=== PATIENT | female | born 1990 | race Caucasian/White ===

== ENCOUNTER 2022-01-05 13:53 | Outpatient (CLI) | payer BC, SELFPAY ==
[2022-01-05 18:05] LABS: TSH With Reflex to FT4* 0.735 uIU/mL (0.270-4.200)
== END 2022-01-05 13:54 | disposition home or self-care (01) ==
PROVIDERS: Visit Provider Advanced Practice Midwife
DX: Z39.2 Encounter for routine postpartum follow-up (principal); E03.9 Hypothyroidism, unspecified; Z12.4 Encounter for screening for malignant neoplasm of cervix
CPT/HCPCS: 84443; 88174

== ENCOUNTER 2023-02-01 10:48 | Outpatient (CLI) | payer BC, SELFPAY | END 2023-02-01 10:49 | disposition home or self-care (01) | PROVIDERS: Visit Provider Advanced Practice Midwife | DX: Z01.419 Encounter for gynecological examination (general) (routine) without abnormal findings (principal); E03.9 Hypothyroidism, unspecified; Z13.29 Encounter for screening for other suspected endocrine disorder | CPT/HCPCS: 84443; 84702 ==

== ENCOUNTER 2023-02-05 13:25 | Outpatient (CLI) | payer BC, SELFPAY | END 2023-02-05 13:26 | disposition home or self-care (01) | LOC: NFLDREF 02-06 20:12 | PROVIDERS: Visit Provider Advanced Practice Midwife | DX: Z32.00 Encounter for pregnancy test, result unknown (principal) | CPT/HCPCS: 84702 ==

== ENCOUNTER 2023-02-13 21:15 | Emergency (ER) | payer BC, SELFPAY ==
[2023-02-13 21:18] VITALS: BP 133/84; PULSE 78; RESP 14; O2SAT 97; BMI 24.7
[2023-02-13 21:38] LABS: Appearance Urine Clear (Clear); Bilirubin Urine Negative (Negative); Blood Urine Negative (Negative); Color Urine Yellow (Yellow); Glucose Urine Negative (Negative); Ketones Urine Negative (Negative); Leukocyte Esterase Urine Negative (Negative); Nitrite Urine Negative (Negative); Protein Urine Negative (Negative); Specific Gravity Urine 1.015 (1.000-1.030); Urobilinogen Urine 0.2 (0.2-1.0)
[2023-02-13 22:16] LABS: RBC Urine 0-2 (0-2); WBC Urine 0-2 (0-5)
[2023-02-13 23:25] LABS: Basophils Absolute Auto 0.02 K/uL (0.00-0.30); Basophils Percent Auto 0.3 % (0.0-3.0); Eosinophils Absolute Auto 0.06 K/uL (0.00-0.50); Eosinophils Percent Auto 0.9 % (0.0-7.0); Hematocrit 41.3 % (33.0-51.0); Hemoglobin* 13.8 gm/dL (12.0-16.0); Immature Granulocytes Abs Auto 0.04 K/uL (0.00-0.30); Immature Granulocytes Pct Auto 0.6 %; Lymphocytes Absolute Auto 2.85 K/uL (0.90-2.90); Lymphocytes Percent Auto 40.9 % (20-44); Mean Corpuscular HGB Conc 33 gm/dL (32-36); Mean Corpuscular Hemoglobin 30 pg (26-34); Mean Corpuscular Volume 91 fL (80-100); Monocytes Percent Auto 6.7 % (0.0-11.0); Neutrophils Absolute Auto 3.53 K/uL (1.7-7.0); Neutrophils Percent Auto 50.6 % (42.0-72.0); Platelet Count* 220 K/uL (140-440); RDW Coefficient of Variation % 12.9 % (11.5-15.5); Red Blood Count 4.56 m/uL (4.00-5.20); White Blood Count* 6.97 K/uL (4.50-11.00)
[2023-02-13 23:26] LABS: Slide Review Reflex No
--- NOTE | 2023-02-13 23:39 | US_ITS ---
Final Report Patient: AUREA CLARKE Facility:?[facility] Patient ID:?[id number] Site Patient ID:?[id number]. Site :?1990 Study:?US OB Pelvis-02/14/2023 12:33:58 AM Ordering Physician:DALY WORKMAN Final Report: HISTORY: Left lower quadrant pain, 1st trimester . COMPARISON: None available of this gestation. TECHNIQUE: Transvaginal ultrasound examination of the early was performed. FINDINGS: A single intrauterine gestational sac is seen with a good double decidual sac sign. A pole cannot be identified. There is a normal-appearing yolk sac. The mean sac diameter measurement of 0.95 cm gives an estimated gestational age of 5 weeks 4 days with an estimated date of delivery of 10/13/2023. This does not correlate well with the LMP of 12/21/2022 which gives a clinical age of 7 weeks 5 days. Since a pole cannot be identified, cardiac activity cannot not be seen. There is a moderate amount of fluid in the cul-de-sac, nonspecific. There is a corpus luteum cyst of in the right ovary, with a small cyst measuring 5 millimeters in diameter. The ovaries are otherwise normal in appearance. IMPRESSION: Single intrauterine gestational sac with estimated age of 5 weeks 4 days. A pole cannot be identified. Dictated by Morgan Owusu MD @ 02/14/2023 12:48:26 AM (Electronic Signature)
--- NOTE | 2023-02-13 23:39 | US_ITS ---
Final Report Patient: AUREA CLARKE Facility:?[facility] Patient ID:?[id number] Site Patient ID:?[id number]. Site :?1990 Study:?US OB Pelvis-02/14/2023 12:33:58 AM Ordering Physician:DALY WORKMAN Final Report: HISTORY: Left lower quadrant pain, 1st trimester . COMPARISON: None available of this gestation. TECHNIQUE: Transvaginal ultrasound examination of the early was performed. FINDINGS: A single intrauterine gestational sac is seen with a good double decidual sac sign. A pole cannot be identified. There is a normal-appearing yolk sac. The mean sac diameter measurement of 0.95 cm gives an estimated gestational age of 5 weeks 4 days with an estimated date of delivery of 10/13/2023. This does not correlate well with the LMP of 12/21/2022 which gives a clinical age of 7 weeks 5 days. Since a pole cannot be identified, cardiac activity cannot not be seen. There is a moderate amount of fluid in the cul-de-sac, nonspecific. There is a corpus luteum cyst of in the right ovary, with a small cyst measuring 5 millimeters in diameter. The ovaries are otherwise normal in appearance. IMPRESSION: Single intrauterine gestational sac with estimated age of 5 weeks 4 days. A pole cannot be identified. Dictated by Morgan Owusu MD @ 02/14/2023 12:48:26 AM (Electronic Signature)
--- NOTE | 2023-02-13 23:40 | ED.GENADULT ---
HPI - General Adult General Date Seen: 02/13/23 Chief complaint: OB/Uterine Contractions Stated complaint: 5 weeks . light cramping Time Seen by Provider: 02/13/23 22:21 History of Present Illness HPI narrative: This is a very pleasant female who is currently approximately 5 weeks based on LMP, who presents to the ER today with left lower quadrant cramping ongoing since last week now also with suprapubic cramping since yesterday. She has had 3 previous healthy pregnancies 1 previous miscarriage. Her most recent child was delivered about 15 months ago. She still breast feeding, but weaning. She has had at least 3 menstrual cycles in the past few months. Her last menstrual cycle occurred in mid December. She had a positive test a couple weeks ago. She has not yet had her 1st care. She has developed her pelvic cramping, as above, since last week but it has gotten worse today. She is not having any vaginal bleeding or any vaginal fluid leakage to confirm high suspicion for miscarriage, but she recalls that her previous miscarriage started similarly. Today she has been a little bit lightheaded, but not fainting. No fever. No definite urinary symptoms. Bowel movements normal. She also has an incidental history of hypothyroidism, well managed on Synthroid. Related Data Home Medications Medication Instructions Recorded Confirmed prenat.vits,marilin,yoq-[id number] 1 tab PO QDAY 01/05/22 02/13/23 Previous Rx's Medication Instructions Recorded levothyroxine 75 mcg tablet 75 mcg PO DAILY #90 tabs 02/01/23 Allergies Allergy/AdvReac Type Severity Reaction Status Date / Time No Known Allergies Allergy Verified 02/13/23 21:24 Review of Systems Narrative: Negative PFSH PFS Medical History Spontaneous ?O03.9 - Complete or unspecified spontaneous without complication (ICD-10) Normal spontaneous vaginal delivery ?O80 - Encounter for full-term uncomplicated delivery (ICD-10) 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) care in third trimester ?Z34.93 - Encounter for supervision of normal , unspecified, third trimester (ICD-10) Plantar fasciitis, bilateral ?M72.2 - Plantar fascial fibromatosis (ICD-10) Periorbital headache ?R51.9 - Headache, unspecified (ICD-10) Missed period ?N92.6 - Irregular menstruation, unspecified (ICD-10) Intermittent chest pain ?R07.9 - Chest pain, unspecified (ICD-10) History of vaginal delivery History of metrorrhagia ?Z87.42 - Personal history of other diseases of the female genital tract (ICD-10) Group B Streptococcus carrier, +RV culture, currently ?O99.820 - Streptococcus B carrier state complicating (ICD-10) Delivery normal ?O80 - Encounter for full-term uncomplicated delivery (ICD-10) Amenorrhea ?N91.2 - Amenorrhea, unspecified (ICD-10) Acute posthemorrhagic anemia ?D62 - Acute posthemorrhagic anemia (ICD-10) Surgical History History of tonsillectomy (2010) ?Z90.89 - Acquired absence of other organs (ICD-10) History of third molar tooth extraction (2014) ?K08.409 - Partial loss of teeth, unspecified cause, unspecified class (ICD-10) Social History (Updated 02/02/23 @ 19:55 by Hayley Doan CNM) Narrative: SOCIAL HISTORY: Education: Masters 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 Lives with: Michael and 3 children (Shakir, Joe, Brijesh) Abuse: Denies past/present Special Diet: denies RISK FACTORS Exercise Times/wk: Beach body and cardio, 6 mornings Depression/Anxiety: denies Seat Belt Use: Every time Smoking: Denies Alcohol/day: not currently, social drinking occasionally Drug Use: Denies past/present Self breast exams: Not routinely What is your current living situation?: I presently have a place to live Problems where you live: no known problems In the past 12 months, utilities in danger of being shut off: no In the past 12 mos, have been you worried that your food would run out before you had money to buy more?: never true In the past 12 mos, the food you bought just didn't last and you didn't have money to buy more?: never true Smoking Status: Never smoker Do you use any of these nicotine containing products: None Second hand tobacco smoke exposure: No How often do you have a drink containing alcohol: never AUDIT-C Alcohol total score: 0 Non-prescribed substance use: denies use How often does anyone, including family, friends and others, physically hurt you: never How often does anyone, including family, friends and others, insult or talk down to you: never How often does anyone, including family, friends and others, threaten you with harm: never How often does anyone, including family, friends and others, scream or curse at you: never Little interest or pleasure in doing things: not at all Feeling down, depressed, or hopeless: not at all Exam Narrative: Exam Narrative: Constitutional: Appears well-developed and well-nourished. Alert. Conversant. Non toxic. HENT: Head: Atraumatic. Nose: Nose normal. Mouth/Throat: Oral mucosa is clear and moist. no trismus. Pharynx normal. Tonsils symmetric. No tonsillar enlargement, erythema, or exudate. Eyes: Conjunctivae normal. EOM normal. Pupils equal, round, and reactive to light. No scleral icterus. Neck: Normal range of motion. Neck supple. No tracheal deviation present. Cardiovascular: Normal rate, regular rhythm. No gallop. No friction rub. No murmur heard. Symmetric radial artery pulses Pulmonary/Chest: Effort normal. No stridor. No respiratory distress. No wheezes. No rales. No rhonchi. Abdominal: Soft. Bowel sounds normal. No distension. No mass. No palpable uterine enlargement. Mild left lower quadrant and suprapubic tenderness. No rebound. No guarding. No CVA tenderness Musculoskeletal: RUE: Normal range of motion. No tenderness. No deformity LUE: Normal range of motion. No tenderness. No deformity RLE: Normal range of motion. No edema. No tenderness. No deformity LLE: Normal range of motion. No edema. No tenderness. No deformity Neurological: Alert and oriented to person, place, and time. Normal strength. CN II-VII intact. No sensory deficit. GCS eye subscore is 4. GCS verbal subscore is 5. GCS motor subscore is 6. Normal coordination Skin: Skin is warm and dry. No rash noted. No pallor. Normal capillary refill. Psychiatric: Normal mood. Normal affect. Very polite. Const: Vital Signs, click to edit/add: Vital Signs - 24 hr 02/13/23 21:18 Pulse Rate [Pulse Oximeter] 78 Respiratory Rate 14 Blood Pressure [Ri ght Upper Arm] 133/84 Pulse Oximetry 97 Oxygen Delivery Me thod Room Air Course Vital Signs Vital signs: Initial Vital Signs Temperature Source Temporal Artery Scan 02/13/23 21:18 Pulse Rate 78 02/13/23 21:18 Respiratory Rate 14 02/13/23 21:18 Blood Pressure 133/84 02/13/23 21:18 Blood Pressure Mean 100 02/13/23 21:18 Blood Pressure Position Sitting 02/13/23 21:18 Pulse Oximetry 97 02/13/23 21:18 Oxygen Delivery Method Room Air 02/13/23 21:18 Vital Signs Pulse Rate 78 02/13/23 21:18 Respiratory Rate 14 02/13/23 21:18 Blood Pressure 133/84 02/13/23 21:18 Pulse Oximetry 97 02/13/23 21:18 Oxygen Delivery Method Room Air 02/13/23 21:18 Pulse Rate 78 02/13/23 21:18 Respiratory Rate 14 02/13/23 21:18 Blood Pressure 133/84 02/13/23 21:18 Pulse Oximetry 97 02/13/23 21:18 Oxygen Delivery Method Room Air 02/13/23 21:18 Medical Decision Making [facility] Narrative Medical decision making narrative: This is a very pleasant 32-year-old female who is G5, P3, with 1 previous miscarriage, currently approximately 5 weeks by dates who presents to the ER today with left lower quadrant and suprapubic cramping. She is not having any vaginal bleeding. Differential would include spontaneous A/B, ectopic , ovarian pathology such as cyst or torsion, UTI, as well as non gynecologic causes of pain. Workup here in the ER shows normal white count at 6.9. Hemoglobin is normal at 13.8. She is not known to be coagulopathic and does not take any anticoagulants. She is not having any active vaginal bleeding. Blood pressure is normal and stable. Consider possible ectopic or miscarriage. She is Rh positive. Quantitative hCG is 6741. Preliminary report from the patient's Pelvic ultrasound indicates that there is no evidence for any adnexal abnormalities to suggest ectopic . There is a hypoechoic structure in the uterus consistent with an embryonic sac at 5 weeks 4 days gestation which would correlate almost exactly with the patient's predicted dates would be. There is no visible pole or cardiac activity, but that may simply be related to the patient's early dates. At this point reasonable clinical judgments suggest the patient is safe for discharge from the ER tonight. She will be close outpatient follow-up with primary care or Obstetrics for serial HCG and serial ultrasounds to confirm viability for the . Discussed potential for involving miscarriage and precautions for return to the ER if she does have worsening pain, lightheadedness, vaginal bleeding, or any concerns. FORMAL RADIOLOGY INTERPRETATION OF THE ULTRASOUND WILL BE DELAYED (LIKELY SEVERAL HOURS) TONIGHT DUE TO IT PROBLEMS. WE FELT IT WAS UNLIKELY TO DEVIATE FROM THE PRELIMINARY REPORT. Urinalysis shows no evidence for pyuria, bacteriuria, or hematuria to suggest UTI or kidney stone. Lab Data Labs: Lab Results 02/13/23 02/13/23 Range/Units 21:30 22:38 WBC 6.97 (4.50-11.00) K/uL RBC 4.56 (4.00-5.20) m/uL Hgb 13.8 (12.0-16.0) gm/dL Hct 41.3 (33.0-51.0) % MCV 91 (80-100) fL MCH 30 (26-34) pg MCHC 33 (32-36) gm/dL RDW Coeff of Juan Manuel 12.9 (11.5-15.5) % Plt Count 220 (140-440) K/uL Neut % (Auto) 50.6 (42.0-72.0) % Lymph % (Auto) 40.9 (20-44) % [place] % (Auto) 6.7 (0.0-11.0) % Eos % (Auto) 0.9 (0.0-7.0) % Baso % (Auto) 0.3 (0.0-3.0) % Neut # (Auto) 3.53 (1.7-7.0) K/uL Lymph # (Auto) 2.85 (0.90-2.90) K/uL [place] # (Auto) 0.50 (0.00-0.90) K/UL Eos # (Auto) 0.06 (0.00-0.50) K/uL Baso # (Auto) 0.02 (0.00-0.30) K/uL Abs Immat Gran (auto) 0.04 (0.00-0.30) K/uL Imm/Tot Granulo (auto) 0.6 % HCG, Quant 6741.10 mIU/mL Urine Color Yellow (Yellow) Urine Appearance Clear (Clear) Urine pH 7.0 (5.0-8.5) Ur Specific [place] 1.015 (1.000-1.030) Urine Protein Negative (Negative) Urine Glucose (UA) Negative (Negative) Urine Ketones Negative (Negative) Urine Blood Negative (Negative) Urine Nitrite Negative (Negative) Urine Bilirubin Negative (Negative) Urine Urobilinogen 0.2 (0.2-1.0) Ur Leukocyte Esterase Negative (Negative) Urine RBC 0-2 (0-2) Urine WBC 0-2 (0-5) Ur Squamous Epith Cells None (None-Few) Urine Bacteria None (None) Blood Type A Positive Discharge Plan Discharge Clinical Impression: Pelvic pain affecting Patient Disposition: Home, Self-Care Condition: Stable Instructions: Threatened Miscarriage (ED), Abdominal Pain in (ED) Additional Instructions: As we discussed, please come back to the ER right away if you have any concerning symptoms especially worsening pain, vaginal bleeding, lightheadedness or weakness, fever, or be of any other problems. Even if your doing well, please recheck with your regular doctor or your OB doctor within 2-3 days for repeat labs and possibly repeat ultrasound. Prescriptions: No Action prenat.vits,marilin,[id number] Tablet 1 tab PO QDAY levothyroxine 75 mcg tablet 75 mcg PO DAILY Qty: 90 3RF Follow Up/Referrals: Provider,Not a Local [Primary Care Provider] - Stand Alone Forms: Digital [employer] Info Instructions
== END 2023-02-14 00:59 | disposition home or self-care (01) ==
PROVIDERS: Emergency Provider Emergency Medicine
DX: R10.2 Pelvic and perineal pain (principal); Z3A.01 Less than 8 weeks gestation of pregnancy
CPT/HCPCS: 36415; 76817; 81001; 84702; 85025; 86900; 86901; 93976; 99283; 99284

== ENCOUNTER 2023-03-13 16:47 | Outpatient (CLI) | payer BC, SELFPAY ==
--- NOTE | 2023-03-13 17:00 | CRLHL7_ITS ---
For Patients: As a result of the Century Cures Act, medical imaging exams and procedure reports are released immediately into your electronic medical record. You may view this report before your referring provider. If you have questions, please contact your health care provider. INDICATION: First trimester scan, establish dates. COMPARISON: 02/14/2023 TECHNIQUE: Real-time magallon-scale imaging of the pelvis was performed. FINDINGS: Sonographic imaging demonstrates a single living intrauterine gestation. The embryo demonstrates a regular cardiac rate measuring 178 beats per minute. The embryo`s crown-rump length measurement of 2.4 cm corresponds to a gestational age of 9 weeks 1 day with a sonographic due date of 10/15/2023. There is a normal-appearing yolk sac. There are no gross abnormalities noted within the embryo at this early state of development. The gestational sac has a normal appearance. There is no evidence of a perigestational hemorrhage. The amount of fluid within the sac appears appropriate for gestational age. The cervix is closed. The myometrium appears normal. The ovaries are of normal size. There are no suspicious fluid collections noted in the cul-de-sac. IMPRESSION: Normal first trimester OB ultrasound exam. Gestational age calculated at 9 weeks 1 day with a sonographic due date of 10/15/2023. Dictated by Manjit Varma MD @ 03/14/2023 9:20:23 AM (Electronically Signed)
== END 2023-03-13 16:48 | disposition home or self-care (01) ==
LOC: US 16:47
PROVIDERS: Visit Provider Physician Assistant
DX: Z34.91 Encounter for supervision of normal pregnancy, unspecified, first trimester (principal); Z3A.09 9 weeks gestation of pregnancy
CPT/HCPCS: 76817; 84439; 84443; 86703; 86803; 86850; 86900; 86901; 87086; 87340

== ENCOUNTER 2023-03-13 18:13 | Outpatient (CLI) | payer BC, SELFPAY | END 2023-03-13 18:14 | disposition home or self-care (01) | PROVIDERS: Visit Provider Registered Nurse | DX: Z34.91 Encounter for supervision of normal pregnancy, unspecified, first trimester (principal); Z3A.09 9 weeks gestation of pregnancy | CPT/HCPCS: 84439; 84443; 86592; 86703; 86762; 86787; 86803; 86850; 86900; 86901; 87086; 87340 ==

== ENCOUNTER 2023-05-29 15:58 | Outpatient (CLI) | payer BC, SELFPAY ==
--- NOTE | 2023-05-29 16:00 | CRLHL7_ITS ---
For Patients: As a result of the Century Cures Act, medical imaging exams and procedure reports are released immediately into your electronic medical record. You may view this report before your referring provider. If you have questions, please contact your health care provider. INDICATION: Evaluate anatomy. COMPARISON: 03/13/2023 TECHNIQUE: Real time magallon scale imaging of the fetus was performed as well as color Doppler analysis of the umbilical vessels. FINDINGS: Sonographic imaging demonstrates a single living intrauterine gestation. Fetus demonstrates a regular cardiac rate of 141 beats per minute. Fetus has a variable position. The placenta lies anteriorly without evidence of placenta previa. Placental edge 5.8 cm from the internal cervical os. Amniotic fluid volume appears normal. Single deepest vertical pocket: 6.4 cm. The cervix is closed and measures 3.3 cm in length. The composite ultrasound gestational age is calculated at 20 weeks 0 days with an estimated sonographic due date of 10/16/2023. The estimated weight is 345 grams which lies at the 55th %. The following biometric measurements were obtained: Biparietal diameter: 4.6 cm/19 weeks 6 days 38th% Head circumference: 17.7 cm/20 weeks 1 day 44th% Abdominal circumference: 15.8 cm/20 weeks 6 days 70th% Femur length: 3.1 cm/19 weeks 5 days 25th% The HC/AC ratio measures: 1.12 range (1.08-1.25) On anatomic survey, there is a normal appearance of the cerebral ventricles, cavum septi pellucidi, cisterna magna and cerebellum. The nose, lips, and facial profile appear normal. The cervical, thoracic and lumbar spine are well visualized and appear normal. There is a normal four-chamber heart view and the left and right ventricular outflow tracts appear normal. The diaphragm and stomach appear normal. The kidneys and bladder also appear normal. There is a normal three-vessel cord and there is an eccentric cord insertion site. The four extremities appear normal. IMPRESSION: Concordance of clinical and sonographic dating. No intrinsic abnormalities noted on anatomic survey. Dictated by Manjit Varma MD @ 05/31/2023 10:21:09 AM (Electronically Signed)
== END 2023-05-29 15:59 | disposition home or self-care (01) ==
LOC: US 15:58
PROVIDERS: Visit Provider Obstetrics & Gynecology
DX: Z34.92 Encounter for supervision of normal pregnancy, unspecified, second trimester (principal); Z3A.20 20 weeks gestation of pregnancy
CPT/HCPCS: 76805

== ENCOUNTER 2023-06-26 17:10 | Outpatient (CLI) | payer BC, SELFPAY | END 2023-06-26 17:11 | disposition home or self-care (01) | LOC: NFLDREF 17:12 | PROVIDERS: Visit Provider Registered Nurse | DX: Z34.92 Encounter for supervision of normal pregnancy, unspecified, second trimester (principal); Z3A.24 24 weeks gestation of pregnancy; E03.9 Hypothyroidism, unspecified | CPT/HCPCS: 84439; 84443 ==

== ENCOUNTER 2023-07-24 15:20 | Outpatient (CLI) | payer BC, SELFPAY | END 2023-07-24 15:21 | disposition home or self-care (01) | LOC: NFLDREF 07-27 11:42 | PROVIDERS: Visit Provider Obstetrics & Gynecology | DX: Z34.93 Encounter for supervision of normal pregnancy, unspecified, third trimester (principal) | CPT/HCPCS: 86592 ==

== ENCOUNTER 2023-07-31 09:19 | Outpatient (CLI) | payer BC, SELFPAY | END 2023-07-31 09:20 | disposition home or self-care (01) | LOC: NFLDREF 09:22 | PROVIDERS: Visit Provider Obstetrics & Gynecology | DX: R30.0 Dysuria (principal) | CPT/HCPCS: 87086 ==

== ENCOUNTER 2023-09-03 15:36 | Outpatient (CLI) | payer BC, SELFPAY | END 2023-09-03 15:37 | disposition home or self-care (01) | LOC: NFLDREF 09-17 07:37 | PROVIDERS: Visit Provider Obstetrics & Gynecology | DX: E03.9 Hypothyroidism, unspecified (principal) | CPT/HCPCS: 84443 ==

== ENCOUNTER 2023-09-17 15:01 | Outpatient (CLI) | payer BC, SELFPAY ==
[2023-09-18 11:34] LABS: Strep B DNA Probe Negative (Negative)
[2023-09-18 11:40] LABS: Strep B Susceptibility Needed? No
== END 2023-09-17 15:02 | disposition home or self-care (01) ==
PROVIDERS: Visit Provider Obstetrics & Gynecology
DX: Z34.93 Encounter for supervision of normal pregnancy, unspecified, third trimester (principal); Z3A.36 36 weeks gestation of pregnancy
CPT/HCPCS: 87081; 87653

== ENCOUNTER 2023-10-21 16:58 | Inpatient (IN) | payer BC, SELFPAY ==
[2023-10-21 17:19] VITALS: PULSE 88; O2SAT 97
[2023-10-21 17:21] VITALS: BP 131/77; PULSE 79; RESP 16; TEMP 37
--- NOTE | 2023-10-21 18:44 | P.LDBA_ITS ---
Subjective History of Present Illness Time Seen by Provider: 18:45 Date Seen: 10/21/23 Narrative: Patient is being admitted to Labor and Delivery for induction of labor secondary to postdates gestation. She is a 33 year old at 40 6/7 weeks gestation. Her full history and physical was dictated by Dr. Ocasio on 09/24/23. Please see this for details. Over the last week, she has noticed increased contractions. She denies vaginal bleeding, unusual vaginal discharge or leakage of fluid. Specific Issues/Plans G 5 P 3013 Spouse: Michael. Children: Joe Schilling, Brijesh. Baby: Jayesh. H&P by [facility] on 09/24/2023 1. MaterniT 21: neg 2. Declined chlamydia and gonorrhea screening at first OB. Wanted to get home to her kids and is low risk. Offered at the next visit. Declined 3. Hypothyroidism: Currently taking 75 mcg levothyroxine. * First-trimester TSH: 1.78, fT4 1.03 * Second-trimester TSH 2.20, fT4 0.92 * 3rd trimester TSH 09/03/23: TSH 1.69 4. H/o macrosomia. 9 lb at 41 weeks and 8 lb 7 oz at 40 weeks 5. Spouse planning vasectomy for contraception. COVID: Not vaccinated. Recommended. Flu: Declines Tdap: 08-07-23 GBS negative 09/17/23 OB - Problem Based A/P Additional Plan (1) : Status: Acute Plan Patient now has a Rizo score of 7 (previously 3). I would not recommend Cook catheter placement. Patient given option of discharge to home with return in the morning for induction versus staying overnight for additional cervical ripening with vaginal misoprostol. She prefers staying for misoprostol. Discussed the importance of maternal positioning during labor to affect rotation and descent into the pelvis, as fetus is currently in an OP position by bedside ultrasound. Discussed her concerns about perineal tearing, as she had an episiotomy with her first delivery and tears in the same location with both of the subsequent vaginal deliveries. Patient is aware that Dr. Ocasio will be assuming care at 0700 tomorrow. Due to history of macrosomia and possible macrosomia, patient is at risk for hemorrhage, so will check a type and screen as well as a CBC tonight. Consider TXA at time of cord clamp. Delivery/Labor/Induction Plan Plan: induction Induction method: per misoprostol protocol (Recommend no more frequently than q4 hours to help prevent active labor overnight which would interfere with rest and lead to potential change of shift delivery.) OB Result Labs Blood Type: A (+) positive Rubella: immune RPR/VDLR: nonreactive GBS Status: negative HBsAG: negative OB Exam Physical Exam Vital signs: Temp Pulse Resp BP Pulse Ox 98.6 F 79 16 131/77 97 10/21/23 17:21 10/21/23 17:21 10/21/23 17:21 10/21/23 17:21 10/21/23 17:19 Narrative: Alert, cooperative, no acute distress. Abdomen nontender. Detailed Labor and Delivery Exam Patient Gravid: Yes Dilation (cm): 2 Effacement (%): 60 Cervix position: mid Consistency: soft Cervical ripeness score: 7 Contraction Frequency: Occasional Contraction intensity: Mild Comments: Ultrasound at the bedside confirms vertex presentation. Fetus (Single) Station: -2 Amniotic Membrane Status: intact Heart Rate Baseline: 145 Monitor Accelerations: Present Monitor Decelerations: None Fci Variability: Moderate (6-25)
[2023-10-21] MEDS: miSOPROStoL 25 MCG/0.25 TABLET VAGINAL ×2 (18:48→23:00)
[2023-10-22] VITALS (36 sets, daily range): BP systolic 100–151; BP diastolic 56–88; PULSE 68–112; RESP 16–18; TEMP 36.4–36.8; O2SAT 92–100; BMI 31.6
[2023-10-22] MEDS: miSOPROStoL 25 MCG/0.25 TABLET VAGINAL (03:00)
--- NOTE | 2023-10-22 07:25 | P.OBPN_ITS ---
Subjective Time Seen by Provider: 07:25 Date Seen: 10/22/23 Narrative: Subjective: The patient states the contractions are getting more intense. Has had 3 doses of Cytotec. Verbal consent obtained for AROM. Will hold off on Pitocin for 1-2 hours after the AROM to see if the patient spontaneously goes into labor. Vital signs: Per electronic medical record. EFM: Baseline 140s, positive accelerations, 1 variable deceleration lasting 10 seconds, moderate variability, nonreactive. Category 2. [place]: Contractions every 2-4 minutes. SVE: 5 cm/75 %/-1. Assessment: 33-year-old 4 para 3 at 41 weeks 0 days gestation undergoing induction of labor Plan: 1. Start Pitocin in 2 hours if the patient has not gone into spontaneous labor. 2. Considering epidural for labor analgesia Objective Vital Signs: Last Vital Signs Temp 97.8 F 10/22/23 03:00 Pulse 85 10/22/23 07:11 Resp 16 10/21/23 17:21 BP 129/88 10/22/23 07:11 Pulse Ox 97 10/21/23 17:19 Contractions Contraction intensity: Mild Assessment Station: -2 Heart Rate Baseline: 145 Monitor Accelerations: Present Monitor Decelerations: None
[2023-10-22] MEDS: LACTATED RINGERS 1000 ML 1,000 ML IV ×2 (07:43→08:40)
[2023-10-22 08:00] LABS: Basophils Absolute Auto 0.02 K/uL (0.00-0.30); Basophils Percent Auto 0.2 % (0.0-3.0); Eosinophils Absolute Auto 0.06 K/uL (0.00-0.50); Eosinophils Percent Auto 0.7 % (0.0-7.0); Hematocrit 39.7 % (33.0-51.0); Hemoglobin* 13.6 gm/dL (12.0-16.0); Immature Granulocytes Abs Auto 0.03 K/uL (0.00-0.30); Immature Granulocytes Pct Auto 0.3 %; Lymphocytes Absolute Auto 2.11 K/uL (0.90-2.90); Lymphocytes Percent Auto 24.1 % (20-44); Mean Corpuscular HGB Conc 34 gm/dL (32-36); Mean Corpuscular Hemoglobin 32 pg (26-34); Mean Corpuscular Volume 92 fL (80-100); Monocytes Percent Auto 5.5 % (0.0-11.0); Neutrophils Absolute Auto 6.04 K/uL (1.7-7.0); Neutrophils Percent Auto 69.2 % (42.0-72.0); Platelet Count* 167 K/uL (140-440); RDW Coefficient of Variation % 13.3 % (11.5-15.5); Red Blood Count 4.31 m/uL (4.00-5.20); White Blood Count* 8.74 K/uL (4.50-11.00)
[2023-10-22 08:02] LABS: Slide Review Reflex No
[2023-10-22] MEDS: ROPIVACAINE 0.2% 100 ml 100 ML 12 MG EPIDURAL (08:20)
[2023-10-22] MEDS: LIDOCAINE 2% (PF) 5 ML VIAL EPIDURAL (08:31)
--- NOTE | 2023-10-22 08:32 | PM.ANBPRC ---
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) Plantar fasciitis, bilateral ?M72.2 - Plantar fascial fibromatosis (ICD-10) Periorbital headache ?R51.9 - Headache, unspecified (ICD-10) Intermittent chest pain ?R07.9 - Chest pain, unspecified (ICD-10) History of vaginal delivery History of metrorrhagia ?Z87.42 - Personal history of other diseases of the female genital tract (ICD-10) Acute posthemorrhagic anemia ?D62 - Acute posthemorrhagic anemia (ICD-10) Surgical History History of tonsillectomy (2010) ?Z90.89 - Acquired absence of other organs (ICD-10) History of third molar tooth extraction (2014) ?K08.409 - Partial loss of teeth, unspecified cause, unspecified class (ICD-10) Social History Narrative: SOCIAL HISTORY: Education: Masters 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 Lives with: Michael and 3 children (Shakir, Joe, Brijesh) Abuse: Denies past/present Special Diet: denies RISK FACTORS Exercise Times/wk: Beach body and cardio, 6 mornings Depression/Anxiety: denies Seat Belt Use: Every time Smoking: Denies Alcohol/day: not currently, social drinking occasionally Drug Use: Denies past/present Self breast exams: Not routinely What is your current living situation?: I presently have a place to live Problems where you live: no known problems In the past 12 months, utilities in danger of being shut off: no In past 12 months, lack of transportation kept you from medical appts, meetings, work, or getting things needed for daily living: no In the past 12 mos, have been you worried that your food would run out before you had money to buy more?: never true In the past 12 mos, the food you bought just didn't last and you didn't have money to buy more?: never true Smoking Status: Never smoker Do you use any of these nicotine containing products: None Second hand tobacco smoke exposure: No How often do you have a drink containing alcohol: never AUDIT-C Alcohol total score: 0 Non-prescribed substance use: denies use How often does anyone, including family, friends and others, physically hurt you: never How often does anyone, including family, friends and others, insult or talk down to you: never How often does anyone, including family, friends and others, threaten you with harm: never How often does anyone, including family, friends and others, scream or curse at you: never Little interest or pleasure in doing things: not at all Feeling down, depressed, or hopeless: several days Meds Home Medications and Allergies Home Medications Medication Instructions Recorded Confirmed Type prenat.vits,marilin,vnz-ueze-obuty 1 tab PO QDAY 01/05/22 10/21/23 History Allergies Allergy/AdvReac Type Severity Reaction Status Date / Time No Known Allergies Allergy Verified 10/21/23 18:13 Results Labs Labs: Laboratory Results - last 24 hr 10/21/23 07:40 WBC 8.74 RBC 4.31 Hgb 13.6 Hct 39.7 MCV 92 MCH 32 MCHC 34 RDW Coeff of Juan Manuel 13.3 Plt Count 167 Neut % (Auto) 69.2 Lymph % (Auto) 24.1 [place] % (Auto) 5.5 Eos % (Auto) 0.7 Baso % (Auto) 0.2 Neut # (Auto) 6.04 Lymph # (Auto) 2.11 [place] # (Auto) 0.50 Eos # (Auto) 0.06 Baso # (Auto) 0.02 Abs Immat Gran (auto) 0.03 Imm/Tot Granulo (auto) 0.3 Vital Signs Vital Signs: Last Vital Signs Temp 97.8 F 10/22/23 03:00 Pulse 93 10/22/23 08:31 Resp 16 10/21/23 17:21 BP 129/66 10/22/23 08:31 Pulse Ox 99 10/22/23 08:24 Weight: 88.904 kg Height: 167.64 cm Anesthesia Procedures Epidural Insertion Patient Location: OB Start Time: 07:50 Stop Time: 08:50 Start Date: 10/22/23 Stop Date: 10/22/23 Reason for Block: procedure for pain Patient Position: sitting Performed By: Lara Rodriguez Preanesthetic Checklist: IV checked, risks and benefits discussed, monitors and equipment checked, pre-op evaluation, timeout performed and anesthesia consent Prep: chlorhexidine gluconate Monitoring: blood pressure monitoring, continuous pulse oximetry and heart rate Approach: midline Vertebral Space: lumbar (1-5) Epidural Technique: MICHAEL saline Needle Type: Tuohy needle Injection Technique: continuous catheter (continuous catheter) Needle gauge: 17 Needle Length (cm): 10 cm Needle Insertion Depth (cm): 6 Catheter Gauge: 19 Catheter Type: multi-orifice Catheter at skin depth (cm): 15 Test Dose Result: negative and lidocaine 1.5% with epinephrine 1 to 200,000
[2023-10-22] MEDS: OXYTOCIN 30 unit/500 ML in NS 30 UNIT/500 ML BAG 300 UNIT IVPB (09:41)
--- NOTE | 2023-10-22 10:03 | W.PM.VAGDEL1 ---
Procedure Delivery date: 10/22/23 Procedure Done: Global Procedure Details: Jie is a 33 year-old G 4 P 3 now 4 admitted on 10/21/2023 at 4:30 p.m. at 40 Weeks, 6 Days gestation for induction of labor. AROM occurred at 7:20 a.m. on 10/22/2023 with clear fluid. Labor Analgesia: Epidural Pitocin: No Labor onset: 10/22/2023 at 7:40 a.m.. Complete: 10/22/2023 at 9:17 a.m.. Pushin10/22/2023 at 9:25 a.m.. heart tones during second stage were: Category 2: Moderate variability between contractions with variable decelerations during contractions with immediate return to baseline between pushes. At 9:35 a.m. a viable female delivered in vertex direct OA presentation over first-degree perineal via spontaneous vaginal delivery. The infant was placed on maternal abdomen. Cord was clamped and cut after a 60 second delay. Nose and mouth were bulb suctioned. Infant weight pending. a at 1 minute and 9 at 5 minutes. Shoulder dystocia: No. Nuchal cord: No but there was a true knot in the cord Placenta delivered spontaneously and complete at 9:41 a.m. with a 3 vessel cord. Laceration(s): First-degree perineal. Repaired using 4-0 Vicryl suture in a running manner. There were 2 periurethral abrasions: skin edges were brought together using 4-0 Vicryl in a running manner. Blood loss: 150 mL. Blood loss measurement type: Quantitative Sponge and needles counts are correct. Specimen: None Mother and were stable after delivery. 's name: Allan The patient is planning on breast feeding. Intrapartal Events: Labor Induction Delivery monitor: external FHT Route of delivery: Laceration description: Perineal - 1st Degree Delivery repair: Vicryl Estimated blood loss (mL): 150 Anesthesia type: Epidural Disposition: floor
[2023-10-22] MEDS: IBUPROFEN 600 MG TABLET PO ×2 (12:02→19:16)
[2023-10-22] MEDS: ACETAMINOPHEN 500 MG TABLET 1000 MG PO (16:05)
[2023-10-23 00:33] VITALS: BP 112/71; PULSE 80; RESP 18; TEMP 36.4; O2SAT 96
[2023-10-23 05:06] VITALS: BP 122/79; PULSE 71; RESP 18; TEMP 36.3; O2SAT 97
[2023-10-23] MEDS: IBUPROFEN 600 MG TABLET PO (05:15)
[2023-10-23 07:55] VITALS: BP 125/81; PULSE 68; RESP 18; TEMP 36.4; O2SAT 97
--- NOTE | 2023-10-23 07:59 | P.DS_ITS ---
DS: Providers Provider Date Seen: 10/23/23 Date of admission: 10/21/23 16:58 Primary care physician: Not a Local Provider Admitting Clinician: Adelina Mcadams MD Attending Physician on discharge: Hayley Doan CNM DS: Diagnosis Discharge Diagnosis (1) care and examination immediately after delivery: Status: Acute (2) Lactating mother: Status: Acute (3) Hypothyroidism: Status: Acute Exam Narrative: Exam Narrative: GENERAL APPEARANCE:? normal affect, alert, no distress MOOD:? appropriate CHEST:? clear to auscultation HEART:? regular rate and rhythm ABDOMEN:? soft, non-tender the uterine fundus is at Umbilicus, Midline and is appropriate for the stage of recovery. PERINEUM:? mild edema of the perineum, there is a Perineal Laceration,?1st degree, that is healing well. EXTREMITIES:? normal and no edema Const: Vital Signs, click to edit/add: Vital Signs - 24 hr 10/22/23 08:07 10/22/23 08:12 10/22/23 08:17 Temperature Pulse Rate Pulse Rate [Left P ulse Oximeter] Respiratory Rate Blood Pressure Blood Pressure [Ri ght Arm] Pulse Oximetry 100 100 100 Oxygen Delivery Me thod 10/22/23 08:21 10/22/23 08:24 10/22/23 08:30 Temperature Pulse Rate 93 96 Pulse Rate [Left P ulse Oximeter] Respiratory Rate Blood Pressure 151/87 H 135/85 Blood Pressure [Ri ght Arm] Pulse Oximetry 99 Oxygen Delivery Me thod 10/22/23 08:31 10/22/23 08:38 10/22/23 08:42 Temperature Pulse Rate 93 93 80 Pulse Rate [Left P ulse Oximeter] Respiratory Rate Blood Pressure 129/66 107/62 103/59 L Blood Pressure [Ri ght Arm] Pulse Oximetry Oxygen Delivery Me thod 10/22/23 08:47 10/22/23 08:48 10/22/23 08:52 Temperature Pulse Rate 80 93 82 Pulse Rate [Left P ulse Oximeter] Respiratory Rate Blood Pressure 129/66 100/56 L 108/59 L Blood Pressure [Ri ght Arm] Pulse Oximetry Oxygen Delivery Me thod 10/22/23 08:57 10/22/23 09:03 10/22/23 09:07 Temperature Pulse Rate 76 68 70 Pulse Rate [Left P ulse Oximeter] Respiratory Rate Blood Pressure 112/65 121/73 120/71 Blood Pressure [Ri ght Arm] Pulse Oximetry Oxygen Delivery La thod 10/22/23 09:12 10/22/23 09:22 10/22/23 09:27 Temperature Pulse Rate 72 82 76 Pulse Rate [Left P ulse Oximeter] Respiratory Rate Blood Pressure 119/75 116/57 L 132/65 Blood Pressure [Ri ght Arm] [facility]xim[facility] 09[facility]33 10/22/23 09:42 10/22/23 09:54 Temperature Pulse Rate 78 83 79 Pulse Rate [Left P ulse Oximeter] Respiratory Rate Blood Pressure 137/70 133/67 124/68 Blood Pressure [Ri ght Arm] Pulse Oximetry [facility] 10:12 10/22/23 10:13 10/22/23 10:28 Temperature 98.3 F Pulse Rate 81 68 Pulse Rate [Left P ulse Oximeter] Respiratory Rate Blood Pressure 130/86 134/84 Blood Pressure [Ri ght Arm] Pulse Oximetry [facility]/23 10:43 10/22/23 10:58 10/22/23 11:12 Temperature Pulse Rate 89 85 85 Pulse Rate [Left P ulse Oximeter] Respiratory Rate Blood Pressure 135/75 135/80 138/88 Blood Pressure [Ri ght Arm] Pulse Oximetry [facility] 11:27 10/22/23 16:15 10/22/23 20:19 Temperature 98.1 F 97.5 F L Pulse Rate 81 Pulse Rate [Left P ulse Oximeter] 80 80 Respiratory Rate 16 18 Blood Pressure 138/78 Blood Pressure [Ri ght Arm] 135/87 120/64 Pulse Oximetry 96 [facility] Room Air 10/23/23 00:33 10/23/23 05:06 10/23/23 07:55 Temperature 97.6 F 97.4 F L 97.5 F L Pulse Rate Pulse Rate [Left P ulse Oximeter] 80 71 68 Respiratory Rate 18 18 18 Blood Pressure Blood Pressure [Ri ght Arm] 112/71 122/79 125/81 Pulse Oximetry 96 97 97 Oxygen Delivery Me od Room Air Room Air Room Air Documenting provider has reviewed patient's vital signs: yes OB - DS: Summary Hospital Course Hospital Course: Jie Houser is a 33 y.o. G 4 P 4 who was admitted to [facility] for post dates. ?She had a NVD that was uncomplicated. The patient feels well. ?The pain is well controlled with current medications. ?She has no new complaints. ?She is breast feeding and reports things are going well. the patient has done well.? Vitals have been stable.? She has remained afebrile.? Has a good appetite, is tolerating a general diet. ?She is voiding without difficulty.? She is passing gas and has not had a bowel movement.? She is ambulating and denies any dizziness.? Has small amount of rubra lochia. She is planning her to have a vasectomy for prevention. He has an appointment scheduled. Problems: none plan: Discharge home with baby. Follow up in 2 weeks and 6 weeks. , may see if needed Hgb 12.0. Hypothyroid, taking 75 mcg of Levothyroxine daily. Rx sent. Peripartum Data delivery method: Vaginal Laceration description: Perineal - 1st Degree Episiotomy description: Midline complications: none [place] Gender: Female Infant Discharge Plan: Home Status at Discharge Functional status at discharge: independent ambulation Overall status at discharge: patient is progressing back to baseline Time Spent with Patient Time attestation: Total time spent providing and/or coordinating discharge services: Time spent: Less than 30 minutes Discharge Plan Discharge Disposition: Home, Self-Care Date of Admission: 10/21/23 16:58 Attending Provider on Discharge: Hayley Doan Primary Care Provider: Provider,Not a Local Condition: Stable Anticipated Discharge Date/Time: 10/23/23 12:00 Discharge Medications: New acetaminophen 500 mg Tablet 1,000 mg PO Q6H PRNQty: 0 0RF docusate sodium 100 mg Capsule 100 mg PO BID PRN (Reason: Constipation) Qty: 90 0RF ibuprofen 600 mg Tablet 600 mg PO Q6H PRNQty: 60 0RF Continued prenat.vits,marilin,[id number]-igfpw Tablet 1 tab PO QDAY levothyroxine 75 mcg tablet 75 mcg PO DAILY Qty: 90 0RF Discharge Orders: Discharge Order (Routine); Ordered 10/23/23 Ordered By: Hayley Doan Patient Education: OB Over the Counter Medication Information, OB Vaginal/Breast Feeding Additional Instructions: Discharge instructions were reviewed with the patient including signs and symptoms of infection and home going medications Nothing vaginally for 6 weeks: no tampons or intercourse Do not drive while taking narcotic pain medication(s) Off Work or School for 8 weeks 2-week visit: discuss infant feeding concerns, review control options and screen for anxiety/depression. 6-week visit for an annual exam. consultation services are available to all mothers and babies for the first year after delivery.? To make an appointment, please call [phone]. Activity Level: Activity as Tolerated Discharge Diet: Regular Follow Up Appointments: [facility] [Provider Group] Forms: MyHealth Info Instructions
--- NOTE | 2023-10-23 13:27 | PM.ANPOST ---
Post Anesthesia Note Post Anesthesia Note Patient seen: Inpatient Respiratory Status: adequate Cardiovascular Status: adequate Mental Status: baseline Pain: adequate Temp: baseline Anesthetic awareness: N/A Complications: none Follow care: none
[2023-10-24 02:19] LABS: Rapid Plasma Reagin (RPR) Non Reactive (Non Reactive)
== END 2023-10-23 10:40 | disposition home or self-care (01) | DRG 560 ==
PROVIDERS: Admitting Provider Obstetrics & Gynecology; Visit Provider Obstetrics & Gynecology
DX: O70.0 First degree perineal laceration during delivery (principal); Z3A.41 41 weeks gestation of pregnancy; Z37.0 Single live birth; O99.284 Endocrine, nutritional and metabolic diseases complicating childbirth; E03.9 Hypothyroidism, unspecified
CPT/HCPCS: 01967; 36415; 59200; 85018; 85025; 86592; 86850; 86900; 86901; A9270; C1726; J2371; J2795; J7120

== ENCOUNTER 2023-12-04 15:50 | Outpatient (CLI) | payer BC, SELFPAY | END 2023-12-04 15:51 | disposition home or self-care (01) | LOC: NFLDREF 15:51 | PROVIDERS: Visit Provider Physician Assistant | DX: Z39.2 Encounter for routine postpartum follow-up (principal); E03.9 Hypothyroidism, unspecified | CPT/HCPCS: 84443 ==

== ENCOUNTER 2024-01-17 15:00 | Outpatient (RCR) | payer BC, SELFPAY | END 2024-05-16 23:59 | disposition home or self-care (01) | PROVIDERS: Visit Provider Physician Assistant | DX: N39.3 Stress incontinence (female) (male) (principal); M54.50 Low back pain, unspecified; M62.81 Muscle weakness (generalized); M54.16 Radiculopathy, lumbar region; M25.659 Stiffness of unspecified hip, not elsewhere classified; Z51.89 Encounter for other specified aftercare | CPT/HCPCS: 97110; 97140; 97162 ==

== ENCOUNTER 2024-12-17 15:25 | Outpatient (CLI) | payer BC, SELFPAY | END 2024-12-17 15:26 | disposition home or self-care (01) | PROVIDERS: Visit Provider Registered Nurse | DX: Z00.00 Encounter for general adult medical examination without abnormal findings (principal); E03.9 Hypothyroidism, unspecified | CPT/HCPCS: 80061; 84443 ==